=== PATIENT | male | born 1990 | race Two or more races ===

== ENCOUNTER 2018-03-24 12:51 | Emergency (ER) | payer OTHER ==
[~2018-03-24] VITALS: Ht 182.9 cm; Wt 79.4 kg
[2018-03-24 13:00] VITALS: BP 118/75
--- NOTE | 2018-03-24 13:00 | NUR ---
ED Nurse Note: Pt AAO x4 present at ER c/o lower back pain 9 x3 days since he got injured from heavy lifting at the gym. Pt ambulated with FWW and weak gait for his age due to severe pain. VSS, remaining calm and cooperative with initial assessment.
--- NOTE | 2018-03-24 13:45 | Emergency Room Report ---
History of Present Illness General Chief Complaint: Lower Back Pain or Injury Source: Patient Present Illness HPI 27-year-old male presents to the emergency department complaining of 9 out of 10 in severity low back pain with some radiation into the left gluteus 3 days. Patient reports acute onset after doing kettle bells 3 days ago. Patient reports that with certain movements he exacerbates a sharp pain however he has constant dull ache in the lower back. Patient denies trauma or fall.Denies numbness tingling or loss of sensation or gross motor movements of the extremities, incontinence of bowel or bladder. Denies CP, Palpitations, LOC, AMS , dizziness, Changes in Vision, weakness or a sudden severe headache. He has been trying stretching and rest which has not provided him relief. Allergies: Coded Allergies: SHELLFISH DERIVED (Verified Allergy, Unknown, 03/24/18) Patient History Past Medical History: see triage record Past Surgical History: none Pertinent Family History: none Reviewed Nursing Documentation: PMH: Agreed; PSxH: Agreed Nursing Documentation-PMH Past Medical History: No Stated History Review of Systems All Other Systems: negative except mentioned in HPI Physical Exam Vital Signs Date Time Temp Pulse Resp B/P (MAP) Pulse Ox O2 Delivery O2 Flow Rate FiO2 03/24/18 12:54 98.1 87 18 122/72 95 Room Air Sp02 EP Interpretation: reviewed, normal General Appearance: no apparent distress, alert, GCS 15, non-toxic Head: normocephalic, atraumatic Eyes: bilateral eye normal inspection, bilateral eye PERRL ENT: hearing grossly normal, normal voice Neck: full range of motion Respiratory: lungs clear, normal breath sounds, speaking full sentences Cardiovascular #1: regular rate, rhythm Musculoskeletal: back normal, gait/station normal, normal range of motion, tender - TTP to the paraspinal musculature of the lumbar area as well as upper left gluteal area, no midline spinous process ttp, FROM, no obvious deformities or evidence of infection. Neurologic: alert, oriented x3, responsive, motor strength/tone normal, sensory intact, speech normal, grossly normal Psychiatric: judgement/insight normal Skin: normal color, no rash, warm/dry, well hydrated Lymphatic: no adenopathy Medical Decision Making PA Attestation Dr. Awan is my supervising Physician whom patient management has been discussed with. Diagnostic Impression: Primary Impression: Muscle spasm of back Additional Impression: Sciatic nerve pain Qualified Codes: M54.32 - Sciatica, left side ER Course 27-year-old male presents to the emergency department complaining of 9 out of 10 in severity low back pain with some radiation into the left gluteus 3 days. Patient reports acute onset after doing kettle bells 3 days ago. Patient reports that with certain movements he exacerbates a sharp pain however he has constant dull ache in the lower back. Patient denies trauma or fall.Denies numbness tingling or loss of sensation or gross motor movements of the extremities, incontinence of bowel or bladder. Denies CP, Palpitations, LOC, AMS , dizziness, Changes in Vision, weakness or a sudden severe headache. He has been trying stretching and rest which has not provided him relief. Ddx considered: epidural abscess, fracture, sprain/strain, meningitis, spinal chord injury, sciatica, cauda equina, Pyelonephritis, renal calculi just to name a few. Vital signs reviewed and are WNL during ED visit. Pt. is afebrile with no signs of infection No new symptoms, and denies recent trauma. No saddle anesthesia noted, Pt. denies incontinence Neurovascular is intact FROM with pain * Mild Tenderness to palpation to paraspinal muscles of the lower back without midline tenderness. *Pt. describes pain today as moderate and radiates across the lower back and down the left gluteus ORDERS: none warranted at this time. INTERVENTIONS: - 600mg IBU -350mg Soma PO d/w pt. conservative treatment, and to follow up with a primary care provider. pt given a list of primary care clinics for follow up. d/w pt. to return to the ED with worsening or new symptoms. DISCHARGE: At this time pt. is stable for d/c to home. Will provide printed patient care instructions, and any necessary prescriptions. Care plan and follow up instructions have been discussed with the patient prior to discharge. Last Vital Signs Date Time Temp Pulse Resp B/P (MAP) Pulse Ox O2 Delivery O2 Flow Rate FiO2 03/24/18 13:00 98.1 80 18 118/75 96 Room Air Disposition: HOME, SELF-CARE Condition: Stable Scripts Methocarbamol* (ROBAXIN-750*) 750 Mg Tablet 750 MG PO QID for 7 Days, #28 TAB 0 Refills Prov: Camryn Gonzalez 03/24/18 Ibuprofen* (MOTRIN*) 600 Mg Tablet 600 MG ORAL THREE TIMES A DAY, #30 TAB 0 Refills Prov: Camryn Gonzalez 03/24/18 Departure Forms: Return to Work Return to Work Date: Mar 26, 2018 Work Restrictions: No Heavy Lifting Other Restrictions: light duty x 5 days. May return Sooner if Symptoms have resolved. Return to Full Activity: Mar 30, 2018 Patient Instructions: Back Pain, Adult, Sciatica, Reyd-ys-Cckg Additional Instructions: Take medications as directed. Follow up with a Primary Care Provider in 3-5 days, even if your symptoms have resolved. --Please review list of primary care clinics, if you do not already have a primary care provider Return sooner to ED if new symptoms occur, or current symptoms become worse. Do not drink alcohol, drive, or operate heavy machinery while taking Robaxin ( Muscle Relaxers) as this may cause drowsiness. - Please note that this Emergency Department Report was dictated using [employer] technology software, occasionally this can lead to erroneous entry secondary to interpretation by the dictation equipment. Camryn Gonzalez Mar 24, 2018 13:45
[2018-03-24] MEDS ORDERED: ROBAXIN-750750 MG PO (13:46)
[2018-03-24] MEDS ORDERED: IBUPROFEN600 MG ORAL (13:46)
[2018-03-24 14:00] VITALS: BP 134/71
--- NOTE | 2018-03-24 14:00 | NUR ---
ED Nurse Note: Pt was cleared to be discharged from [facility]. Pt and his mother received discharge instruction with prescriptions and verbalized understanding. VSS, pt ambulated with FWW to be discharged in stable condition. ID band removed.
== END 2018-03-24 14:00 | disposition home or self-care (01) ==
LOC: EMR 13:30
DX: M54.42 Lumbago with sciatica, left side (principal); Z91.013 Allergy to seafood
CPT/HCPCS: 99282

== ENCOUNTER 2020-05-04 11:53 | Emergency (ER) | payer OTHER ==
[~2020-05-04] VITALS: Ht 182.9 cm; Wt 97.5 kg
[~2020-05-04 11:53] MED LIST: IBUPROFEN600 MG ORAL; ROBAXIN-750750 MG PO
[2020-05-04] MEDS ORDERED: Metoclopramide 10mg/2ml Inj IVP ONE (12:45)
[2020-05-04] MEDS ORDERED: Ketorolac 30mg Inj IV ONE (12:45)
[2020-05-04] MEDS ORDERED: Methocarbamol 500mg tab ORAL ONE (12:45)
[2020-05-04] MEDS ORDERED: Omnipaque 350 100ml vial INJ PRN (12:45)
--- NOTE | 2020-05-04 12:53 | Emergency Room Report ---
History of Present Illness General Chief Complaint: Pain Source: Patient Present Illness HPI Patient is a 29-year-old male denies any significant past medical history who presents to the ER complaining of headache. Patient complains of intermittent frontal pressure-like headaches for the past month. He states that his grandfather of a brain aneurysm. Patient denies any head trauma, blurry vision, focal weakness or rash. He denies any fever or chills. Patient also complains of bilateral scapular pain and neck pain that radiate down both of his arms. He states that happened 3 days ago. He denies any weakness in his arms. He denies any chest pain or shortness of breath. He denies any smoking, drinking or drug use. Patient thought that this might be secondary to some anxiety. Allergies: Coded Allergies: SHELLFISH DERIVED (Verified Allergy, Unknown, 03/24/18) COVID-19 Screening Contact w/high risk pt: No Experienced COVID-19 symptoms?: No COVID-19 Testing performed COAL TRIMMER: No Patient History Reviewed Nursing Documentation: PMH: Agreed; PSxH: Agreed Nursing Documentation-PMH Past Medical History: No Stated History Review of Systems All Other Systems: negative except mentioned in HPI Physical Exam Vital Signs Date Time Temp Pulse Resp B/P (MAP) Pulse Ox O2 Delivery O2 Flow Rate FiO2 05/04/20 12:25 98.6 81 18 125/85 (98) 95 Room Air Sp02 EP Interpretation: reviewed, normal General Appearance: no apparent distress, alert, GCS 15, non-toxic Head: normocephalic, atraumatic Eyes: bilateral eye normal inspection, bilateral eye PERRL ENT: hearing grossly normal, normal pharynx, no angioedema, normal voice Neck: full range of motion, no meningismus, supple/symm/no masses Respiratory: chest non-tender, lungs clear, normal breath sounds, speaking full sentences Cardiovascular #1: regular rate, rhythm, no edema Gastrointestinal: normal bowel sounds, non tender, soft, non-distended, no guarding, no rebound Rectal: deferred Musculoskeletal: normal range of motion, no calf tenderness Neurologic: motor strength/tone normal, cotton program technician III-XII nml as tested, oriented x3, sensory intact Psychiatric: no suicidal/homicidal ideation Skin: no rash Lymphatic: no adenopathy Medical Decision Making Diagnostic Impression: Primary Impression: Headache Additional Impressions: Arm paresthesia, right Arm paresthesia, left ER Course Patient's labs demonstrate no significant acute abnormalities. Patient given IV fluids, Robaxin, Toradol and Reglan. On reevaluation he states that his symptoms have improved but feels a little bit anxious about being in the emergency department. Patient is paging a CTA brain. Patient signed out to Dr. Brennan at [address] results reevaluation and final disposition. Laboratory Tests Test 05/04/20 13:00 White Blood Count 6.7 K/UL (4.8-10.8) Red Blood Count 5.57 M/UL (4.70-6.10) Hemoglobin 16.8 G/DL (14.2-18.0) Hematocrit 50.8 % (42.0-52.0) Mean Corpuscular Volume 91 FL (80-99) Mean Corpuscular Hemoglobin 30.2 PG (27.0-31.0) Mean Corpuscular Hemoglobin Concent 33.1 G/DL (32.0-36.0) Red Cell Distribution Width 13.1 % (11.6-14.8) Platelet Count 278 K/UL (150-450) Mean Platelet Volume 8.5 FL (6.5-10.1) Neutrophils (%) (Auto) 44.2 % (45.0-75.0) L Lymphocytes (%) (Auto) 45.2 % (20.0-45.0) H Monocytes (%) (Auto) 7.6 % (1.0-10.0) Eosinophils (%) (Auto) 2.4 % (0.0-3.0) Basophils (%) (Auto) 0.7 % (0.0-2.0) Urine Color Pale yellow Urine Appearance Clear Urine pH 8 (4.5-8.0) Urine Specific [place] 1.015 (1.005-1.035) Urine Protein Negative (NEGATIVE) Urine Glucose (UA) Negative (NEGATIVE) Urine Ketones Negative (NEGATIVE) Urine Blood Negative (NEGATIVE) Urine Nitrite Negative (NEGATIVE) Urine Bilirubin Negative (NEGATIVE) Urine Urobilinogen Normal MG/DL (0.0-1.0) Urine Leukocyte Esterase Negative (NEGATIVE) Sodium Level 137 MMOL/L (136-145) Potassium Level 4.0 MMOL/L (3.5-5.1) Chloride Level 101 MMOL/L (98-107) Carbon Dioxide Level 28 MMOL/L (21-32) Anion Gap 8 mmol/L (5-15) Blood Urea Nitrogen 11 mg/dL (7-18) Creatinine 1.0 MG/DL (0.55-1.30) Estimated Glomerular Filtration Rate > 60 mL/min (>60) Glucose Level 92 MG/DL (74-106) Calcium Level 9.6 MG/DL (8.5-10.1) Magnesium Level 2.1 MG/DL (1.8-2.4) Total Bilirubin 0.6 MG/DL (0.2-1.0) Aspartate Amino Transferase (AST) 20 U/L (15-37) Alanine Aminotransferase (ALT) 48 U/L (12-78) Alkaline Phosphatase 52 U/L (46-116) Total Protein 8.0 G/DL (6.4-8.2) Albumin 3.9 G/DL (3.4-5.0) Globulin 4.1 g/dL Albumin/Globulin Ratio 1.0 (1.0-2.7) Urine Opiates Screen Negative (NEGATIVE) Urine Barbiturates Screen Negative (NEGATIVE) Phencyclidine (PCP) Screen Negative (NEGATIVE) Urine Amphetamines Screen Negative (NEGATIVE) Urine Benzodiazepines Screen Negative (NEGATIVE) Urine Cocaine Screen Negative (NEGATIVE) Urine Marijuana (THC) Screen Negative (NEGATIVE) Last Vital Signs Date Time Temp Pulse Resp B/P (MAP) Pulse Ox O2 Delivery O2 Flow Rate FiO2 05/04/20 12:25 98.6 81 18 125/85 (98) 95 Room Air Condition: Unknown Signed Out To: Oncoming ER physician at 1400 Additional Instructions: Please note that this report is being documented using [employer] technology. This can lead to erroneous entry secondary to incorrect interpretation by the dictating instrument. Torie Thacker M.D. May 04, 2020 12:53
[2020-05-04 13:09] LABS: APPEARANCE,URINE CLEAR; BASOPHILS % (AUTO) 0.7 % (0.0-2.0); BILIRUBIN, URINE NEGATIVE (NEGATIVE); COLOR,URINE PALE YELLOW; EOSINOPHILS % (AUTO) 2.4 % (0.0-3.0); GLUCOSE, URINE (UA) NEGATIVE (NEGATIVE); HEMATOCRIT 50.8 % (42.0-52.0); HEMOGLOBIN 16.8 G/DL (14.2-18.0); KETONES,URINE NEGATIVE (NEGATIVE); LEUKOCYTE ESTERASE ,URINE NEGATIVE (NEGATIVE); LYMPHOCYTES % (AUTO) 45.2 % (20.0-45.0); MEAN CORPUSCULAR VOLUME 91 FL (80-99); MONOCYTES % (AUTO) 7.6 % (1.0-10.0); NEUTROPHILS % (AUTO) 44.2 % (45.0-75.0); NITRITE,URINE NEGATIVE (NEGATIVE); PH,URINE 8 (4.5-8.0); PLATELET COUNT 278 K/UL (150-450); PROTEIN,URINE NEGATIVE (NEGATIVE); RED BLOOD COUNT 5.57 M/UL (4.70-6.10); RED CELL DISTRIBUTION WIDTH 13.1 % (11.6-14.8); UROBILINOGEN,URINE NORMAL MG/DL (0.0-1.0); WHITE BLOOD COUNT 6.7 K/UL (4.8-10.8)
[2020-05-04 13:23] LABS: ALANINE AMINOTRANSFERASE 48 U/L (12-78); ALBUMIN 3.9 G/DL (3.4-5.0); ALKALINE PHOSPHATASE 52 U/L (46-116); ANION GAP 8 mmol/L (5-15); ASPARTATE AMINO TRANSFERASE 20 U/L (15-37); BILIRUBIN,TOTAL 0.6 MG/DL (0.2-1.0); CALCIUM 9.6 MG/DL (8.5-10.1); CARBON DIOXIDE 28 MMOL/L (21-32); CHLORIDE 101 MMOL/L (98-107); SODIUM 137 MMOL/L (136-145)
[2020-05-04 13:29] LABS: BLOOD UREA NITROGEN 11 mg/dL (7-18)
[2020-05-04 13:50] VITALS: BP 130/88
--- NOTE | 2020-05-04 15:19 | Diagnostic Imaging Report ---
Indication: Headache. Concern for intracranial aneurysm. Technique: CT of the head was performed before and after the administration of IV contrast. Continuous helical CT scanning of the head was performed without intravenous contrast material. Axial and coronal 5 mm sections were generated. Subsequently arterial phase images were obtained for CT angiogram of the head. Maximal intensity projection images generated of the [place]. Delayed phase images were also obtained. Radiation dose was minimized using automated exposure control. Dose: Total Dose Length Product - DLP [address] Dose Index - CTDIvol(s) 163.7 mGy. Comparison: None FINDINGS: Noncontrast CT of the head: There is no acute intracranial hemorrhage, mass effect or cortical edema. There is no shift in midline structures. The ventricles, cisterns and sulci are normal for age. Visualized mastoid air cells and paranasal sinuses are unremarkable. No focal lesions of the bony calvarium or soft tissues of the scalp are seen. CT angiogram of the head: [place] is patent. There is no large vessel significant stenosis or occlusion. No vascular malformation is appreciated. Involving the right cavernous carotid artery there is a 2 mm outpouching (axial thin series images #40) concerning for a small aneurysm. No additional aneurysm is identified.. Delayed images demonstrate no abnormal focus of postcontrast enhancement. IMPRESSION: Noncontrast CT of the head: No evidence of acute intracranial hemorrhage, mass effect or cortical edema. CT angiogram of the head: Patent [place], no large vessel significant stenosis. 2 mm focal outpouching involving the cavernous segment of the right internal carotid artery (series 15 image #40) concerning for a small aneurysm. Follow-up recommended. The CT scanner at [facility] is accredited by the [employer] and the scans are performed using protocols designed to limit radiation exposure to as low as reasonably achievable to attain images of sufficient resolution adequate for diagnostic evaluation.
--- NOTE | 2020-05-04 15:25 | Emergency Room Report ---
Physical Exam Vital Signs Date Time Temp Pulse Resp B/P (MAP) Pulse Ox O2 Delivery O2 Flow Rate FiO2 05/04/20 12:25 98.6 81 18 125/85 (98) 95 Room Air Medical Decision Making Diagnostic Impression: Primary Impression: Aneurysm of internal carotid artery Additional Impressions: Headache Arm paresthesia, left Arm paresthesia, right ER Course Assumed care of the patient from the previous provider at approximately 1400. Please refer to initial note for full history and physical exam. Briefly, 29-year-old male presented for headache. Due to family history of aneurysm CTA of the head was pending. Noncontrast CT showed no acute findings. CTA of the head showed a patent [place] and no large vessel stenosis. There was a 2 mm focal outpouching of the cavernous segment on the right internal carotid artery concerning for a small aneurysm. No active bleeding noted. This will be followed up by the patient on outpatient basis. His headache is improved after receiving Robaxin. Will prescribe additional Robaxin tablets. Instructed to return with new or worsening symptoms. He is well- appearing with and stable for outpatient follow-up. Laboratory Tests Test 05/04/20 13:00 White Blood Count 6.7 K/UL (4.8-10.8) Red Blood Count 5.57 M/UL (4.70-6.10) Hemoglobin 16.8 G/DL (14.2-18.0) Hematocrit 50.8 % (42.0-52.0) Mean Corpuscular Volume 91 FL (80-99) Mean Corpuscular Hemoglobin 30.2 PG (27.0-31.0) Mean Corpuscular Hemoglobin Concent 33.1 G/DL (32.0-36.0) Red Cell Distribution Width 13.1 % (11.6-14.8) Platelet Count 278 K/UL (150-450) Mean Platelet Volume 8.5 FL (6.5-10.1) Neutrophils (%) (Auto) 44.2 % (45.0-75.0) L Lymphocytes (%) (Auto) 45.2 % (20.0-45.0) H Monocytes (%) (Auto) 7.6 % (1.0-10.0) Eosinophils (%) (Auto) 2.4 % (0.0-3.0) Basophils (%) (Auto) 0.7 % (0.0-2.0) Urine Color Pale yellow Urine Appearance Clear Urine pH 8 (4.5-8.0) Urine Specific [place] 1.015 (1.005-1.035) Urine Protein Negative (NEGATIVE) Urine Glucose (UA) Negative (NEGATIVE) Urine Ketones Negative (NEGATIVE) Urine Blood Negative (NEGATIVE) Urine Nitrite Negative (NEGATIVE) Urine Bilirubin Negative (NEGATIVE) Urine Urobilinogen Normal MG/DL (0.0-1.0) Urine Leukocyte Esterase Negative (NEGATIVE) Sodium Level 137 MMOL/L (136-145) Potassium Level 4.0 MMOL/L (3.5-5.1) Chloride Level 101 MMOL/L (98-107) Carbon Dioxide Level 28 MMOL/L (21-32) Anion Gap 8 mmol/L (5-15) Blood Urea Nitrogen 11 mg/dL (7-18) Creatinine 1.0 MG/DL (0.55-1.30) Estimated Glomerular Filtration Rate > 60 mL/min (>60) Glucose Level 92 MG/DL (74-106) Calcium Level 9.6 MG/DL (8.5-10.1) Magnesium Level 2.1 MG/DL (1.8-2.4) Total Bilirubin 0.6 MG/DL (0.2-1.0) Aspartate Amino Transferase (AST) 20 U/L (15-37) Alanine Aminotransferase (ALT) 48 U/L (12-78) Alkaline Phosphatase 52 U/L (46-116) Total Protein 8.0 G/DL (6.4-8.2) Albumin 3.9 G/DL (3.4-5.0) Globulin 4.1 g/dL Albumin/Globulin Ratio 1.0 (1.0-2.7) Urine Opiates Screen Negative (NEGATIVE) Urine Barbiturates Screen Negative (NEGATIVE) Phencyclidine (PCP) Screen Negative (NEGATIVE) Urine Amphetamines Screen Negative (NEGATIVE) Urine Benzodiazepines Screen Negative (NEGATIVE) Urine Cocaine Screen Negative (NEGATIVE) Urine Marijuana (THC) Screen Negative (NEGATIVE) CT/MRI/US Diagnostic Results CT/MRI/US Diagnostic Results : Impression IMPRESSION: Noncontrast CT of the head: No evidence of acute intracranial hemorrhage, mass effect or cortical edema. CT angiogram of the head: Patent [place], no large vessel significant stenosis. 2 mm focal outpouching involving the cavernous segment of the right internal carotid artery (series 15 image #40) concerning for a small aneurysm. Follow-up recommended. The CT scanner at [facility] is accredited by the [employer] and the scans are performed using protocols designed to limit radiation exposure to as low as reasonably achievable to attain images of sufficient resolution adequate for diagnostic evaluation. Dictated By: Travon Guallpa M.D. Electronically Signed By:Travon Guallpa M.D. Signed Date/Time 05/04/20 1514 Last Vital Signs Date Time Temp Pulse Resp B/P (MAP) Pulse Ox O2 Delivery O2 Flow Rate FiO2 05/04/20 13:50 78 18 130/88 99 Room Air 05/04/20 12:25 98.6 Disposition: HOME, SELF-CARE Condition: Stable Scripts Methocarbamol* (ROBAXIN-750*) 750 Mg Tablet 750 MG PO QID, #28 TAB 0 Refills Prov: Ivan Brennan MD 05/04/20 Patient Instructions: Carotid Angioplasty With Stent Additional Instructions: Follow-up with neurosurgery regarding the finding of a 2 mm focal small aneurysm in the right internal carotid artery. Please follow-up with your primary care doctor in the next 1 to 3 days to discuss this emergency department visit and for reevaluation. If you have any new or worsening symptoms please return to the emergency department for reevaluation. Please note that this report is being documented using [employer] technology. This can lead to erroneous entry secondary to incorrect interpretation by the dictating instrument. Ivan Brennan MD May 04, 2020 15:24
[2020-05-04] MEDS ORDERED: ROBAXIN-750750 MG PO (15:30)
[2020-05-04 15:45] VITALS: BP 122/74
== END 2020-05-04 15:50 | disposition home or self-care (01) ==
LOC: EMR 14:30
DX: I67.1 Cerebral aneurysm, nonruptured (principal); R51.9 Headache, unspecified; R20.2 Paresthesia of skin; Z91.013 Allergy to seafood; M54.2 Cervicalgia
CPT/HCPCS: 36415; 70496; 80053; 80307; 81003; 83735; 85025; 96361; 96374; 96375; J1885; J2765; J7030; Q9967; Z7502; 99284